=== PATIENT | female | born 1945 | race Asian ===

== ENCOUNTER 2016-09-01 10:27 | Outpatient (CLI) | payer OTHER ==
[~2016-09-01 10:27] MED LIST: ALPR0.5T24 PO; CELEXA40 MG OR; CYCL10TA35 PO; ESTR0.6256 VA; FLUT0.05 NAS; HYDR-2748 PO; LISI20TA24 PO; LYRICA75 MG OR; MECLIZINE25 MG OR; OMEP20CA PO; RANI150T78 PO; RYBIX ODT50 MG OR; Z-PAK PO
== END 2016-09-01 19:19 | disposition home or self-care (01) ==
LOC: MAMMO 10:27
DX: Z12.31 Encounter for screening mammogram for malignant neoplasm of breast (principal)
CPT/HCPCS: G0202-TC

== ENCOUNTER 2016-09-02 15:03 | Outpatient (CLI) | payer OTHER ==
[2016-09-02 15:35] LABS: PLATELET COUNT 342 K/uL (152-353)
== END 2016-09-02 19:10 | disposition home or self-care (01) ==
LOC: LAB 15:03
PROVIDERS: Nurse Practitioner Family
DX: E78.4 Other hyperlipidemia (principal); K21.9 Gastro-esophageal reflux disease without esophagitis; I10 Essential (primary) hypertension; Z79.899 Other long term (current) drug therapy; Z51.81 Encounter for therapeutic drug level monitoring
CPT/HCPCS: 80053; 80061; 83036; 84439; 84443; 85027

== ENCOUNTER 2016-11-16 10:42 | Day surgery (SDC) | payer OTHER | END 2016-11-16 11:59 | disposition home or self-care (01) | LOC: OR 10:42 | DX: H25.812 Combined forms of age-related cataract, left eye (principal); Z53.8 Procedure and treatment not carried out for other reasons ==

== ENCOUNTER 2016-12-07 07:41 | Day surgery (SDC) | payer OTHER | END 2016-12-07 09:29 | disposition home or self-care (01) | LOC: OR 07:41 | DX: H25.812 Combined forms of age-related cataract, left eye (principal); Z53.8 Procedure and treatment not carried out for other reasons ==

== ENCOUNTER 2016-12-28 07:09 | Day surgery (SDC) | payer OTHER ==
[~2016-12-28] VITALS: Ht 30.5 cm; Wt 0.5 kg
== END 2016-12-28 09:25 ==
LOC: OR 07:09
PROC: 08RK3JZ Replacement of Left Lens with Synthetic Substitute, Percutaneous Approach (ICD-10-PCS; principal; 2016-12-28)
DX: H25.812 Combined forms of age-related cataract, left eye (principal)
CPT/HCPCS: 66984; J0171; V2632

== ENCOUNTER 2017-09-15 14:58 | Outpatient (CLI) | payer OTHER ==
[2017-09-15 16:43] LABS: PLATELET COUNT 350 K/uL (152-353)
[2017-09-15 17:02] LABS: POTASSIUM 3.7 mmol/L (3.6-5.2)
== END 2017-09-15 21:50 | disposition home or self-care (01) ==
LOC: LAB 14:58
PROVIDERS: Nurse Practitioner Family
DX: I10 Essential (primary) hypertension (principal); K21.9 Gastro-esophageal reflux disease without esophagitis; E78.4 Other hyperlipidemia; Z79.899 Other long term (current) drug therapy; Z51.81 Encounter for therapeutic drug level monitoring
CPT/HCPCS: 80053; 80061; 83036; 84436; 84443; 85027

== ENCOUNTER 2019-02-28 09:57 | Outpatient (CLI) | payer OTHER | END 2019-02-28 20:11 | disposition home or self-care (01) | LOC: MAMMO 09:57 | DX: Z12.31 Encounter for screening mammogram for malignant neoplasm of breast (principal); I10 Essential (primary) hypertension; E78.49 Other hyperlipidemia; R42 Dizziness and giddiness ==

== ENCOUNTER 2019-05-04 15:58 | Emergency (ER) | payer OTHER ==
[~2019-05-04] VITALS: Ht 157.5 cm; Wt 78.0 kg
[2019-05-04 16:10] VITALS: BP 120/76; TEMP 98.1
== END 2019-05-04 17:23 | disposition home or self-care (01) ==
LOC: ED 15:58
DX: N76.0 Acute vaginitis (principal); R10.2 Pelvic and perineal pain; T19.2XXA Foreign body in vulva and vagina, initial encounter
CPT/HCPCS: 87070; 87490; 87590; 96372; 99284; J0696

== ENCOUNTER 2019-10-11 10:46 | Outpatient (CLI) | payer OTHER ==
[2019-10-11 11:12] LABS: PLATELET COUNT 353 K/uL (152-353)
[2019-10-11 13:30] LABS: POTASSIUM 4.2 mmol/L (3.6-5.2)
== END 2019-10-11 22:22 | disposition home or self-care (01) ==
LOC: LAB 10:46
PROVIDERS: Nurse Practitioner Family
DX: I10 Essential (primary) hypertension (principal); E78.49 Other hyperlipidemia; E11.9 Type 2 diabetes mellitus without complications; K21.9 Gastro-esophageal reflux disease without esophagitis; F41.8 Other specified anxiety disorders
CPT/HCPCS: 80053; 80061; 83036; 84439; 84443; 85027

== ENCOUNTER 2021-01-08 11:39 | Emergency (ER) | payer OTHER ==
[~2021-01-08] VITALS: Ht 157.5 cm; Wt 70.8 kg
[2021-01-08 13:09] LABS: POTASSIUM 4.4 mmol/L (3.6-5.2); SODIUM 143 mmol/L (136-145)
[2021-01-08 13:22] LABS: PLATELET COUNT 295 K/uL (152-353)
[2021-01-08 13:51] LABS: PARTIAL THROMBOPLASTIN TIME 25.6 SECONDS (24.5-33.6)
[2021-01-08 14:00] VITALS: BP 121/63; TEMP 97.2
== END 2021-01-08 14:00 | disposition home or self-care (01) ==
LOC: ED 11:39
PROVIDERS: Hospitalist
DX: R07.89 Other chest pain (principal); K21.9 Gastro-esophageal reflux disease without esophagitis
CPT/HCPCS: 80053; 82550; 83880; 84484; 85027; 85610; 85730; 93005; 99284

== ENCOUNTER 2021-03-14 12:56 | Outpatient (CLI) | payer OTHER | END 2021-03-14 19:27 | disposition home or self-care (01) | LOC: MAMMO 12:56 | PROVIDERS: ATTEND Nurse Practitioner Family | DX: Z12.31 Encounter for screening mammogram for malignant neoplasm of breast (principal) ==

== ENCOUNTER 2021-05-27 11:17 | Outpatient (CLI) | payer OTHER ==
[2021-05-27 11:43] LABS: PLATELET COUNT 299 K/uL (152-353)
[2021-05-27 11:47] LABS: POTASSIUM 4.2 mmol/L (3.6-5.2)
== END 2021-05-27 19:14 | disposition home or self-care (01) ==
LOC: LABW 11:17
PROVIDERS: ATTEND Surgery
DX: C21.0 Malignant neoplasm of anus, unspecified (principal)
CPT/HCPCS: 36415; 80053; 82378; 85027

== ENCOUNTER 2021-07-11 09:30 | Outpatient (CLI) | payer OTHER | END 2021-07-11 20:01 | disposition home or self-care (01) | LOC: CT 09:30 | PROVIDERS: ATTEND Surgery | DX: C21.0 Malignant neoplasm of anus, unspecified (principal) | CPT/HCPCS: 36415; 82565; 84520; Q9963 ==

== ENCOUNTER 2022-07-29 10:47 | Day surgery (SDC) | payer OTHER ==
[~2022-07-29] VITALS: Ht 154.9 cm; Wt 79.4 kg
== END 2022-07-29 13:55 | disposition home or self-care (01) ==
LOC: OR 10:47
PROVIDERS: ATTEND Internal Medicine Gastroenterology
PROC: 0DBP8ZX Excision of Rectum, Via Natural or Artificial Opening Endoscopic, Diagnostic (ICD-10-PCS; principal; 2022-07-29)
PROC: 0DBE8ZX Excision of Large Intestine, Via Natural or Artificial Opening Endoscopic, Diagnostic (ICD-10-PCS; 2022-07-29)
DX: K62.1 Rectal polyp (principal); K57.30 Diverticulosis of large intestine without perforation or abscess without bleeding; K64.8 Other hemorrhoids; Z87.898 Personal history of other specified conditions; R10.30 Lower abdominal pain, unspecified; R19.7 Diarrhea, unspecified; Z86.010 Personal history of colon polyps
CPT/HCPCS: J2704; J7120

== ENCOUNTER 2022-08-07 15:15 | Outpatient (CLI) | payer OTHER | END 2022-08-07 19:20 | disposition home or self-care (01) | LOC: RAD 15:15 | PROVIDERS: ATTEND Nurse Practitioner Family | DX: M54.59 Other low back pain (principal) ==